=== PATIENT | female | born 1985 | race Caucasian/White ===

== ENCOUNTER → 2023-05-23 | Outpatient (CLI) | payer MEDICAID ==
--- NOTE | 2023-05-26 09:25 | MM ---
Reason for Exam: Screening (asymptomatic). Baseline mammogram. Patient History: Menarche at age 10. First Full-Term at age 17. Currently using Hormonal Contraceptives, starting at age 37. Risk Values: Vernell 5 year model risk: 0.4%. NCI Lifetime model risk: 7.3%. Prior Study Comparison: Patient's first Mammogram. No prior studies available for comparison. Tissue Density: The breast tissue is heterogeneously dense. This may lower the sensitivity of mammography. Findings: Analyzed By CAD. Pattern appears symmetrical. Benign calcifications within the right breast. No suspicious groups of microcalcifications, spiculated or lobular masses, architectural distortion or other secondary signs of malignancy are mammographically apparent. Overall Assessment: Benign, BI-RAD 2 Management: Screening Mammogram of both breasts in 1 year. A negative mammogram report should not preclude additional follow up of suspicious palpable abnormalities. Patient should continue monthly self breast exam. A clinical breast exam by your physician is recommended on an annual basis and results should be correlated with mammographic findings. Electronically signed and approved by: Rico Browne D.O. Radiologis
== END | disposition home or self-care (01) ==
LOC: RADMAMWWP 14:08
PROVIDERS: ATTEND Pediatrics
DX: Z12.31 Encounter for screening mammogram for malignant neoplasm of breast (principal)
CPT/HCPCS: 77063; 77067

== ENCOUNTER → 2024-09-07 | Outpatient (CLI) | payer OTHER ==
--- NOTE | 2024-09-08 09:33 | MM ---
Reason for Exam: Screening (asymptomatic). Last mammogram was performed 1 year(s) and 4 month(s) ago. Patient History: Menarche at age 10. First Full-Term at age 17. Currently using Hormonal Contraceptives, starting at age 37. Last menstrual period: 08/11/2024 Risk Values: Vernell 5 year model risk: 0.4%. NCI Lifetime model risk: 7.3%. Prior Study Comparison: 05/23/2023 Bilateral MG 3D screening mammo w/cad, [facility]. Tissue Density: The breasts are heterogeneously dense, which may obscure small masses. Findings: Analyzed By CAD. There is no suspicious group of microcalcifications or new suspicious mass in either breast. Overall Assessment: Negative, BI-RAD 1 Management: Screening Mammogram of both breasts in 1 year. . Patient should continue monthly self-breast exams. A clinical breast exam by your physician is recommended on an annual basis. This exam should not preclude additional follow-up of suspicious palpable abnormalities. Note on Vernell scores and lifetime risk: 1. A Vernell score greater than 3% is considered moderate risk. If this is the case, consider specialist referral to assess eligibility for a risk reducing agent. 2. If overall lifetime risk for the development of breast cancer is 20% or higher, the patient may qualify for future screening with alternating mammogram and breast MRI. [facility], , 09/08/2024 9:29 AM. Electronically signed and approved by: Mateusz Bahgat M.D. Radiologis
== END | disposition home or self-care (01) ==
LOC: RADMAMWWP 08:26
PROVIDERS: ATTEND Pediatrics
DX: Z12.31 Encounter for screening mammogram for malignant neoplasm of breast
CPT/HCPCS: 77063; 77067

== ENCOUNTER → 2024-09-07 | Outpatient (CLI) | payer OTHER ==
[2024-09-07 15:23] LABS: Basophils # (A) 0.02 X 10*3/uL (0.00-0.10); Basophils % (A) 0.3 %; Eosinophils # (A) 0.09 X 10*3/uL (0.04-0.35); Eosinophils % (A) 1.2 %; HCT 41.8 % (37.2-46.3); HGB 14.1 g/dL (12.0-15.0); Lymphocytes # (A) 2.02 X 10*3/uL (0.90-5.00); Lymphocytes % (A) 27.9 %; MCH 31.8 pg (27.0-32.0); MCHC 33.7 g/dL (32.0-37.0); MCV 94.4 FL (80.0-97.0); Mean Platelet Volume 9.2 FL (9.5-12.2); Monocytes # (A) 0.32 X 10*3/uL (0.20-1.00); Monocytes % (A) 4.4 %; NRBC Per 100 WBC 0 X 10*3/uL (0.00-0.01); Neutrophils # (A) 4.77 X 10*3/uL (1.80-7.70); Neutrophils % (A) 65.9 %; Platelet Count 337 X 10*3/uL (140-440); RBC 4.43 X 10*6/uL (4.10-5.20); RDW 11.9 % (11.5-14.5); WBC 7.24 X 10*3/uL (4.50-10.00)
== END | disposition home or self-care (01) ==
LOC: LABPAT 11:29
PROVIDERS: ATTEND Obstetrics & Gynecology
DX: Z01.818 Encounter for other preprocedural examination (principal)
CPT/HCPCS: 85025

== ENCOUNTER 2024-09-13 08:23 | Day surgery (SDC) | payer OTHER ==
--- NOTE | 2024-09-12 12:54 | P.HPOB ---
History of Present Illness H&P Date: 09/12/24 Chief Complaint: family planning 39 year old presents for laparoscopic tubal ligation and possible fulguration of endometriosis. Review of Systems All systems: negative Constitutional: Denies chills, Denies fever Eyes: denies blurred vision, denies pain Ears, nose, mouth and throat: Denies headache, Denies sore throat Cardiovascular: Denies chest pain, Denies shortness of breath Respiratory: Denies cough Gastrointestinal: Denies abdominal pain, Denies diarrhea, Denies nausea, Denies vomiting Genitourinary: Denies dysuria, Denies hematuria Musculoskeletal: Denies myalgias Integumentary: Denies pruritus, Denies rash Neurological: Denies numbness, Denies weakness Psychiatric: Denies anxiety, Denies depression Endocrine: Denies fatigue, Denies weight change Past Medical History Additional Past Medical History / Comment(s): endometriosis History of Any Multi-Drug Resistant Organisms: None Reported Past Surgical History: Appendectomy, Cholecystectomy Additional Past Surgical History / Comment(s): fulguration of endometriosis, surgery to rt elbow Past Anesthesia/Blood Transfusion Reactions: Postoperative Nausea & Vomiting (PONV) Additional Past Anesthesia/Blood Transfusion Reaction / Comment(s): no blood transfusions. Smoking Status: Former smoker, Second hand smoke exposure - Past Family History Mother Family Medical History: Myocardial Infarction (AL) Additional Family Medical History / Comment(s): at 40yrs Medications and Allergies Home Medications Medication Instructions Recorded Confirmed Type ALPRAZolam [Xanax] 0.25 mg PO DIRECTED PRN 09/08/24 09/08/24 History Cetirizine HCl [Zyrtec] 10 mg PO DAILY 09/08/24 09/08/24 History Ibuprofen [Motrin Ib] 400 mg PO DIRECTED PRN 09/08/24 09/08/24 History Unk Elderberry 1 tab PO DAILY 09/08/24 09/08/24 History Unk Epi Pen 1 dose IM DIRECTED PRN 09/08/24 09/08/24 History Unk Multi Vitamin 1 tab PO DAILY 09/08/24 09/08/24 History diphenhydrAMINE HCL [Benadryl] 50 mg PO DIRECTED PRN 09/08/24 09/08/24 History medroxyPROGESTERone [Depo-Provera] 150 mg IM DIRECTED 09/08/24 09/08/24 History predniSONE [Deltasone] 20 mg PO DIRECTED 09/08/24 09/08/24 History Allergies Allergy/AdvReac Type Severity Reaction Status Date / Time bee venom protein (honey bee) Allergy Anaphylaxis Verified 09/08/24 13:32 ciprofloxacin [From Cipro] Allergy Rash/Hives Verified 09/08/24 13:04 Iodinated Contrast Media Allergy Dyspnea Verified 09/08/24 13:04 shellfish derived [Shellfish] Allergy Anaphylaxis Verified 09/08/24 13:04 Sulfa (Sulfonamide Allergy Rash/Hives Verified 09/08/24 13:04 Antibiotics) metal allergy unspecified Allergy blisters Uncoded 09/08/24 13:04 Exam Osteopathic Statement: *. No significant issues noted on an osteopathic structural exam other than those noted in the History and Physical/Consult. Heart: Regular rate and rhythm Lungs: Clear to auscultation bilaterally Abdomen: Soft, nontender Extremities: Negative Homans sign Assessment and Plan (1) Family planning Status: Acute Code(s): Z30.09 - ENCOUNTER FOR OTH GENERAL CNSL AND ADVICE ON CONTRACEPTION SNOMED Code(s): 765931146 (2) Endometriosis Status: Acute Code(s): N80.9 - ENDOMETRIOSIS, UNSPECIFIED SNOMED Code(s): 063930016 Plan: 1. laparoscopic tubal ligation with possible fulguration of endometriosis
[~2024-09-13 08:23] MED LIST: LIDOCAINE 1% (10MG/ML) FOR IV START INTRADERMA PRN; MIDAZOLAM 2 MG/2 ML VIAL IV PRN; Pre Op ABX Message 1 EACH MISC MISCELLANE ONE; fentaNYL (PF) 50 MCG/ML 2 ML AMP IVP PRN
[2024-09-13] MEDS: IV FLUID CONTINUATION 1,000 ML IV ONE (09:00)
[2024-09-13] MEDS: LACTATED RINGERS 1,000 ML IV SCH (09:16)
[2024-09-13] MEDS: DEXAMETHASONE SOD PHOSPHATE 4 MG/ML 1 ML VIAL IV ONE (09:22)
[2024-09-13] MEDS: ONDANSETRON 4 MG/2 ML VIAL IVP ONE (09:22)
[2024-09-13] MEDS: SCOPOLAMINE 1 MG/72 HR PATCH TRANSDERM STA (09:25)
[2024-09-13] MEDS ORDERED: fentaNYL (PF) 50 MCG/ML 2 ML AMP ONE (10:05)
[2024-09-13] MEDS ORDERED: MIDAZOLAM 2 MG/2 ML VIAL ONE (10:05)
[2024-09-13] MEDS ORDERED: GLYCOPYRROLATE 0.2 MG/ML 2 ML VIAL ONE (10:05)
[2024-09-13] MEDS ORDERED: SUCCINYLCHOLINE CHLORIDE 200 MG/10 ML VIAL IV ONE (10:05)
[2024-09-13] MEDS ORDERED: NEOSTIGMINE 1 MG/ML 10 ML VIAL ONE (10:05)
[2024-09-13] MEDS ORDERED: ROCURONIUM 10 MG/ML (5 ML VIAL) IV ONE (10:05)
[2024-09-13] MEDS ORDERED: KETOROLAC 15 MG/ML 1 ML VIAL ONE (10:05)
[2024-09-13] MEDS ORDERED: LIDOCAINE 1% INJ 10MG/ML (20 ML MDV) ONE (10:05)
[2024-09-13] MEDS ORDERED: diphenhydrAMINE 50 MG/ML 1 ML VIAL ONE (10:05)
[2024-09-13] MEDS ORDERED: PROPOFOL 10 MG/ML 20 ML VIAL IV ONE (10:05)
[2024-09-13] MEDS: BUPIVACAINE (PF) 0.25% 30 ML VIAL SQ ONE ×2 (10:42)
--- NOTE | 2024-09-13 10:55 | P.OP ---
Date of Procedure: 09/13/24 Preoperative Diagnosis: 1. family planning 2. endometriosis Postoperative Diagnosis: same Procedure(s) Performed: laproscopic tubal ligation with fulguration of endometriosis Anesthesia: WEI Surgeon: Radha Castellanos Estimated Blood Loss (ml): 3 IV fluids (ml): 700 Urine output (ml): 50 Pathology: none sent Condition: stable Disposition: PACU Operative Findings: Total uterus tubes and ovaries. Scarring from endometriosis in both ovarian fossa Description of Procedure: Patient was taken to the operating room where general anesthesia was obtained without difficulty. She was prepped and draped in normal sterile fashion in the dorsal lithotomy position, legs placed in the Christos stirrups. Bladder drained of all urine. Parker speculum placed in the vagina and the anterior lip the cervix was grasped with single-tooth tenaculum. The uterus is sounded to 8 cm and the kroner manipulator was placed. Attention was then turned to the abdomen and gloves were changed. A 10 mm supraumbilical incision was made the scalpel and 10 mm optical trocar was placed under direct visualization. A 5 mm suprapubic Incision was made and a 5 mm optical trocar was placed under direct visualization. Survey of the pelvis revealed normal uterus tubes and ovaries. The left fallopian tube was grasped with a Kleppinger and fulgurated 2-3 cm on this side in the ampullar portion. The right fallopian tube was grasped with a Kleppinger and fulgurated 2-3 cm in the ampullar portion. scanning of the pelvis revealed only areas of endometriosis were some scarring in the ovarian fossae on both sides. These areas were fulgurated using the hook cautery. There was a little bleeding from the right side so the Kleppinger was then used to cauterize the bleeding. Hemostasis was assured. All instruments were then removed from the abdomen and vagina. The 10 mm infraumbilical incision was closed with 0 Vicryl and the fascial layer and then 4-0 Vicryl in a subcuticular fashion. The 5 mm incision was closed with 4-0 Vicryl in a subcuticular fashion. Patient tolerated procedure well, sponge and instrument counts correct 2 and she was taken to recovery room in stable condition.
[2024-09-13 11:05] VITALS: TEMP 98
[2024-09-13] MEDS: HYDROmorphone 0.5 MG/0.5 ML SYRINGE IVP PRN (11:26)
[2024-09-13] MEDS: LACTATED RINGERS 1,000 ML IV ONE (11:54)
[2024-09-13] MEDS: HYDROcodone/APAP 7.5-325MG 1 EACH TAB PO ONE (12:21)
[2024-09-13 12:51] VITALS: BP 116/74; PULSE 99; RESP 18
== END 2024-09-13 13:14 | disposition home or self-care (01) ==
LOC: OR 08:23
PROVIDERS: ATTEND Obstetrics & Gynecology
CPT/HCPCS: 81025